=== PATIENT | female | born 1965 | race Caucasian/White ===

== ENCOUNTER 2016-12-28 06:22 | Inpatient (IN) | payer OTHER ==
[2016-12-28] VITALS (12 sets, daily range): BP systolic 101–154; BP diastolic 69–86
[~2016-12-28] VITALS: Ht 152.4 cm; Wt 90.7 kg
[~2016-12-28 06:22] MED LIST: LISI-607 PO; METF500T4 PO
[2016-12-28] MEDS ORDERED: BACITRACIN 50000 UNITS/VIAL ONE (06:43)
[2016-12-28] MEDS ORDERED: BUPIVACAINE MPF 0.5% W/EPI INJ 30 ML VIAL ONE (06:43)
[2016-12-28] MEDS ORDERED: KETOROLAC TROMETHAMINE INJ 30 MG/ML VIAL ONE (06:43)
[2016-12-28] MEDS ORDERED: FENTANYL PF 100MCG/2ML AMPUL ONE ×2 (06:53→09:17)
[2016-12-28] MEDS ORDERED: SUCCINYLCHOLINE CHLORIDE 20 MG/ML VIAL ONE (06:54)
[2016-12-28] MEDS ORDERED: HYDROMORPHONE INJ 2 MG/ML DISP.SYRIN ONE (06:54)
[2016-12-28] MEDS ORDERED: ROCURONIUM BROMIDE 50 MG/5 ML ONE (06:54)
[2016-12-28] MEDS ORDERED: TRANEXAMIC ACID 3,000 MG in SODIUM CHLORIDE IRRIG SOLUTION 70 ML IR ONE (07:30)
[2016-12-28] MEDS ORDERED: BISACODYL SUPP (10 MG) 10 MG/SUPP.RECT SUPP.RECT RC PRN (10:00)
[2016-12-28] MEDS ORDERED: ONDANSETRON HCL/PF 4 MG/2 ML VIAL IVP PRN ×2 (10:00→21:00)
[2016-12-28] MEDS ORDERED: ACETAMINOPHEN 325 MG TABLET PO PRN ×2 (10:00→21:00)
[2016-12-28] MEDS ORDERED: ZOLPIDEM TARTRATE 5 MG TABLET PO PRN ×2 (10:00→21:00)
[2016-12-28] MEDS ORDERED: SENNOSIDES 8.6 MG TABLET PO PRN (10:00)
[2016-12-28] MEDS ORDERED: HYDROCODONE/APAP 5/325MG 1 EACH TABLET PO PRN ×2 (10:00→21:00)
[2016-12-28] MEDS ORDERED: DOCUSATE SODIUM 250 MG CAPSULE PO PRN (10:00)
[2016-12-28] MEDS ORDERED: IV D5/0.45 NACL 1,000 ML IV PRN (10:00)
--- NOTE | 2016-12-28 10:00 | NUR ---
MS RN NOTES RECEIVED PATIENT IN BED REPORTS PAIN 02/16 DR. LOPEZ PAIN AEROSPACE STRESS ENGINEER CALLED. PERIPHERAL IV INTACT PATENT. VS WITHIN NORMAL LIMITS. S/P LEFT KNEE TOTAL REPLACEMENT. WILL CONTINUE TO MONITOR.
--- NOTE | 2016-12-28 11:00 | NUR ---
MS RN NOTES CALL RECEIVED FROM DR. LOPEZ WITH NEW ORDERS NOTED AND CARRIED OUT.
[2016-12-28] MEDS ORDERED: MAGNESIUM HYDROXIDE 30 ML UDC PO PRN ×2 (11:30→21:00)
[2016-12-28] MEDS ORDERED: diphenhydrAMINE HCL 25 MG CAPSULE PO PRN (11:30)
[2016-12-28] MEDS ORDERED: MAG HYDROX/AL HYDROX/SIMETH 30 ML UDC PO PRN ×2 (11:30→21:00)
[2016-12-28] MEDS ORDERED: CLONIDINE HCL 0.1 MG TABLET PO PRN (11:30)
[2016-12-28] MEDS ORDERED: oxyCODONE IR immediate release 5 MG CAPSULE PO PRN (11:30)
[2016-12-28] MEDS: HYDROMORPHONE 1 MG/1 ML DISP.SYRIN IM/IV PRN ×4 (11:39→23:53)
[2016-12-28] MEDS: ANCEF 1 GM/50 ML D5W IV SCH ×4 (13:15→21:09)
[2016-12-28] MEDS: DOCUSATE SODIUM 100 MG CAPSULE PO SCH (16:53)
[2016-12-28] MEDS: ASPIRIN 325 MG TABLET PO SCH (16:53)
[2016-12-28] MEDS: oxyCODONE IR immediate release 5 MG CAPSULE PO PRN ×2 (16:54→21:11)
--- NOTE | 2016-12-28 18:14 | NUR ---
MS RN NOTES PATIENT IN BED RESTING WITH SITTER AT BEDSIDE. ALL DUE MEDICATIONS ADMINISTERED. ALL NEEDS MET. WILL ENDORSE TO PM SHIFT ELIZA. PERIPHERAL IV INTACT PATENT. PATIENTS PAIN CONTROLLED WITH MEDICATIONS.
--- NOTE | 2016-12-28 19:10 | NUR ---
RN OPEN NOTES RECEIVED PATIENT AWAKE IN BED. A/O X4. NO SIGNS OF DISTRESS OR DISCOMFORT. BREATHING EVEN AND UNLABORED. IV ACCESS IN R WRIST WITH D5 1/2 NS INFUSING, NO SIGNS OF REDNESS OR INFILTRATION. STATES PAIN IS 2/10 AND TOLERABLE AT THIS TIME. DRESSING ON LEFT LEG C/D/I. HAS F/C PATENT AND INTACT WITH CLEAR YELLOW FLUID NOTED. BED IN LOW LOCKED POSITION WITH SIDE RAILS X2. CALL LIGHT WITHIN REACH. WILL CONTINUE TO MONITOR.
[2016-12-28] MEDS ORDERED: Z GUARD REMEDY 2 OZ OINT TP PRN (21:00)
[2016-12-28] MEDS ORDERED: DEXTROSE 50%-WATER 50 ML DISP.SYRIN IV PRN (21:00)
[2016-12-28] MEDS ORDERED: MORPHINE SULFATE INJ 2 MG/ML DISP.SYRIN IV PRN (21:00)
[2016-12-28] MEDS: IV NS 0.9% 1,000 ML IV PRN (21:10)
--- NOTE | 2016-12-28 21:11 | NUR ---
RN NOTES ADMINISTERED OXYCODONE IR 10MG PO ORDERED FOR PAIN 8/10 IN L KNEE. VSS. WILL CONTINUE TO MONITOR.
[2016-12-28] MEDS: BLOOD SUGAR DIAGNOSTIC 1 EACH STRIP IN SCH (21:13)
[2016-12-28] MEDS: INSULIN REGULAR, HUMAN 100 UNIT/ML 3 ML VIAL SQ PRN (21:15)
[2016-12-28] MEDS ORDERED: PANTOPRAZOLE 40 MG TABLET.DR PO SCH (22:00)
--- NOTE | 2016-12-28 23:53 | NUR ---
RN NOTES ADMINISTERED DILAUDID 0.5MG IV ORDERED FOR PAIN 9/10 IN L KNEE. VSS. WILL CONTINUE TO MONITOR.
[2016-12-29] MEDS: oxyCODONE IR immediate release 5 MG CAPSULE PO PRN ×4 (04:42→16:54)
--- NOTE | 2016-12-29 04:42 | NUR ---
RN NOTES ADMINISTERED OXYCODONE IR 10MG PO ORDERED FOR PAIN 8/10 IN L KNEE. VSS. WILL CONTINUE TO MONITOR.
[2016-12-29] MEDS: BLOOD SUGAR DIAGNOSTIC 1 EACH STRIP IN SCH ×4 (06:38→21:46)
[2016-12-29] MEDS: INSULIN REGULAR, HUMAN 100 UNIT/ML 3 ML VIAL SQ PRN ×4 (06:39→21:51)
--- NOTE | 2016-12-29 06:56 | NUR ---
RN CLOSING NOTES PATIENT RESTING IN BED. A/O X4. NO SIGNS OF DISTRESS OR DISCOMFORT. BREATHING EVEN AND UNLABORED. IV ACCESS IN R WRIST WITH NS INFUSING, NO SIGNS OF REDNESS OR INFILTRATION. STATES PAIN IS 4/10 AND TOLERABLE AT THIS TIME. DRESSING ON LEFT LEG C/D/I. HAS F/C PATENT AND INTACT WITH CLEAR YELLOW FLUID NOTED. ALL NEEDS MET. NO SIGNIFICANT CHANGES THROUGH THE NIGHT. BED IN LOW LOCKED POSITION WITH SIDE RAILS X2. CALL LIGHT WITHIN REACH. WILL ENDORSE TO AM SHIFT FOR ELIZA.
[2016-12-29 07:13] LABS: BASOPHILS % (AUTO) 0.3 % (0.0-2.0); EOSINOPHILS % (AUTO) 0.3 % (0.0-6.0); HEMATOCRIT 36 % (33-45); HEMOGLOBIN 12.3 g/dL (11.5-14.8); LYMPHOCYTES % (AUTO) 21.7 % (20.0-44.0); MEAN CORPUSCULAR HEMOGLOBIN 30 PG (26.0-33.0); MEAN CORPUSCULAR HGB CONC 34 g/dl (31.0-36.0); MEAN CORPUSCULAR VOLUME 88 fL (82-100); MONOCYTES # (AUTO) 0.9 /CMM (0.1-1.30); MONOCYTES % (AUTO) 6.9 % (2.0-12.0); NEUTROPHILS # (AUTO) 9.8 /CMM (1.8-8.9); NEUTROPHILS % (AUTO) 70.8 % (43.0-81.0); PLATELET COUNT (AUTO) 227 /CMM (150-450); RDW COEFFICIENT OF VARIATION 12.8 (11.5-15.0); RED BLOOD CELL COUNT(AUTO) 4.09 MIL/uL (4.0-5.2); WHITE BLOOD COUNT (AUTO) 13.8 K/uL (4.3-11.0)
--- NOTE | 2016-12-29 07:20 | NUR ---
MS RN OPENING NOTES RECEIVED PT. FROM NIGHTSHIFT NURSE IN STABLE CONDITION. PT IS A/O X3. NO SOB NOTED. BREATHING IS EVEN AND UNLABORED. PT. REPORTS OF AN ACHING, SHARP PAIN IN HER LEFT KNEE. PT. RATES THE PAIN AN 8/10. NIGHTSHIFT NURSE STATES THAT SHE WILL GIVE HER A PRN PAIN MEDICATION. SURGICAL DRESSING ON LEFT LEG REMAINS DRY AND INTACT. ARRIAGA CATHETER INTACT AND DRAINING CLEAR YELLOW URINE. WILL D/C ARRIAGA CATHETER AT 1000 ORDERED BY . IV ON RIGHT WRIST 22G IS PATENT AND INTACT. NO REDNESS OR SIGNS OF INFILTRATION NOTED. BED IN LOW LOCKED POSITION, SIDE RAILS UP X2, CALL LIGHT WITHIN REACH. WILL CONTINUE TO MONITOR.
[2016-12-29] MEDS: HYDROMORPHONE 1 MG/1 ML DISP.SYRIN IM/IV PRN ×5 (07:37→21:43)
[2016-12-29 07:46] LABS: ALBUMIN 3.2 g/dL (3.4-5.0); BILIRUBIN,TOTAL 0.5 mg/dL (0.2-1.0); CALCIUM, SERUM 8.6 mg/dL (8.5-10.1); CREATININE 0.6 mg/dL (0.6-1.3); MAGNESIUM 1.7 mg/dL (1.8-2.4); PHOSPHORUS 4.6 mg/dL (2.5-4.9); POTASSIUM 4.2 mmol/L (3.5-5.1); TOTAL PROTEIN, SERUM 6.8 g/dL (6.4-8.2)
[2016-12-29 08:00] VITALS: BP 110/63
[2016-12-29] MEDS: LISINOPRIL (5MG) 5 MG TABLET PO SCH (09:15)
[2016-12-29] MEDS: METFORMIN 500 MG TABLET PO SCH ×2 (09:15→16:55)
[2016-12-29] MEDS: ASPIRIN 325 MG TABLET PO SCH ×2 (09:18→16:55)
[2016-12-29] MEDS: DOCUSATE SODIUM 100 MG CAPSULE PO SCH ×2 (09:18→16:55)
[2016-12-29] MEDS: PANTOPRAZOLE 40 MG TABLET.DR PO SCH (09:18)
--- NOTE | 2016-12-29 10:01 | NUR ---
MS RN NOTES FC REMOVED FROM PT ORDERED BY MD AND PER HOSPITAL PROTOCOL.
[2016-12-29] MEDS: Magnesium 1GM/D5W 100ML PREMIX 100 ML IV SCH ×2 (12:49→14:06)
[2016-12-29 16:00] VITALS: BP 112/73
[2016-12-29] MEDS: IV NS 0.9% 1,000 ML IV PRN (16:56)
--- NOTE | 2016-12-29 18:48 | NUR ---
MS RN CLOSING NOTES PT. REMAINS IN STABLE CONDITION . PAIN WAS PROPERLY MANAGED WITH A COMBINATION OF OXYCODONE AND DILAUDID. WILL ADMINISTERED PRN DILAUDID BEFORE LEAVING. VITAL SIGNS HAVE REMAINED WNL. PT. WAS SEEN BY PT TWO TIMES TODAY AND WAS ABLE TO WALK ABOUT 80FT BOTH TIME. CMP MACHINE WAS ON THE PT. FOR 3HRS. PT. COULD NOT TOLERATE IT ANY LONGER AFTER THAT. ALL NEEDS WERE MET AND ANTICIPATED FOR DURING SHIFT. ALL ORDERS WERE CARRIED OUT ACCORDINGLY. WILL ENDORSE TO NIGHTSHIFT NURSE FOR ELIZA
--- NOTE | 2016-12-29 19:30 | NUR ---
MS RN NOTES RECEIVED ON BED A/O X4,S/P LEFT KNEE SURGERY UNDER DR TESFAYE.DRESSING INTACT AND DRY.DVT PUMP IN USED FOR DVT PROHYLAXIS.IVF INFUSING WELL VIA IV PUMP ON THE RIGHT WRIST..SITE PATENT.NO S/S OF INFILTRATION NOTED.LOTS OF FAMILY MEMBER AT BEDSIDE.PAIN BEARABLE AT THE MOMENT.CALL LIGHT IN REACH,NEEDS ANTICIPATED.
[2016-12-29 20:00] VITALS: BP 138/66
[2016-12-29 20:11] VITALS: BP 138/66
--- NOTE | 2016-12-29 20:56 | NUR ---
MS RN NOTES PAIN MANAGEMENT C/O PAIN VIA LEFT KNEE 6-11/16 ON PAIN SCALE.MEDICATED WITH NORCO 5/325MG 1 TAB PO PER PATIENT REQUEST.WILL MONITOR FOR RELIEF.
[2016-12-29 21:08] LABS: APPEARANCE,URINE SL CLOUDY (CLEAR); BILIRUBIN,URINE NEGATIVE (NEGATIVE); BLOOD, URINE 2+ Ery/uL (NEGATIVE); COLOR,URINE YELLOW (YELLOW); KETONES,URINE NEGATIVE (NEGATIVE); LEUKOCYTE ESTERASE ,URINE NEGATIVE (NEGATIVE); NITRITE, URINE NEGATIVE (NEGATIVE); PROTEIN,URINE NEGATIVE (NEGATIVE); UGLUCOSE NEGATIVE (NEGATIVE); UROBILINOGEN,URINE 0.2 EU/dL (0.2)
[2016-12-29 21:16] LABS: BACTERIA,URINE Few /HPF (None Seen); SQUAMOUS EPITHELIAL CELL,UR Few /HPF (None Seen); WBC,URINE 0-2 /HPF (0-3)
--- NOTE | 2016-12-29 21:30 | NUR ---
MS RN NOTES SEEN BY DR LOPEZ(PAIN MANAGEMENT MD)NO NEW ORDERS.
--- NOTE | 2016-12-29 21:43 | NUR ---
MS RN NOTES PAIN MANAGEMENT PAIN ON LEFT KNEE 10/10,CRYING,MEDICATED WITH DILAUDID 0.5MG IVP ORDERED AND PER PATIENT REQUEST.
--- NOTE | 2016-12-29 22:00 | NUR ---
MS RN NOTES ACCU-CHECK BLOOD SUGAR CHECK 202,COVERED WITH HUMULIN R 4 UNITS PER MILD SLIDING SCALE.
--- NOTE | 2016-12-30 | NUR ---
MS RN NOTES SOUND ASLEEP,O2 SAT 99% ON ROOM AIR
[2016-12-30] MEDS: HYDROMORPHONE 1 MG/1 ML DISP.SYRIN IM/IV PRN ×6 (01:12→17:04)
--- NOTE | 2016-12-30 01:12 | NUR ---
MS RN NOTES PAIN MANAGEMENT AWAKE,FACIAL GRIMACE NOTED,C/O PAIN VIA LEFT KNEE 9/10 ON PAIN SCALE.MEDICATED WITH DILAUDID 0.5MG IV ORDERED.WILL MONITOR FOR RELIEF.
--- NOTE | 2016-12-30 04:55 | NUR ---
MS RN NOTES PAIN MANAGEMENT C/O PAIN VIA LEFT KNEE,MOANS WITH FACIAL GRIMACE.MEDICATED WITH DILAUDID 0.5MG IV PER PATIENT REQUEST
[2016-12-30] MEDS: BLOOD SUGAR DIAGNOSTIC 1 EACH STRIP IN SCH ×3 (06:38→17:51)
[2016-12-30] MEDS: INSULIN REGULAR, HUMAN 100 UNIT/ML 3 ML VIAL SQ PRN ×2 (06:40→12:03)
[2016-12-30 07:15] LABS: CALCIUM, SERUM 8.1 mg/dL (8.5-10.1); CREATININE 0.6 mg/dL (0.6-1.3); MAGNESIUM 1.7 mg/dL (1.8-2.4); POTASSIUM 3.9 mmol/L (3.5-5.1)
--- NOTE | 2016-12-30 07:38 | NUR ---
MS RN NOTES PAIN MANAGEMENT C/O PAIN VIA LEFT KNEE,CRYING.PAIN SCALE 10/10.MEDICATED WITH DILAUDID 0.5MG IV ORDERED.WILL MONITOR FOR RELIEF.ENDORSED TO MAUREEN SYED FOR ELIZA.
[2016-12-30 08:00] VITALS: BP 124/73
--- NOTE | 2016-12-30 08:13 | NUR ---
MS/RN OPENING NOTE PATIENT RECEIVED IN BED. NO ACUTE DISTRESS. COMPLAIN OF PAIN RATED 8 OUT OF 10. PAIN MED ADMINISTERED AROUND 7AM. TOLERATED WELL. ALERT AND ORIENTED TIMES 4. ALL NEEDS ATTENDED TO. CALL LIGHT IN REACH. WILL CONTINUE TO MONITOR TO ENSURE SAFETY
[2016-12-30] MEDS: LISINOPRIL (5MG) 5 MG TABLET PO SCH (09:56)
[2016-12-30] MEDS: METFORMIN 500 MG TABLET PO SCH ×2 (09:56→17:03)
[2016-12-30] MEDS: DOCUSATE SODIUM 100 MG CAPSULE PO SCH ×2 (09:56→17:04)
[2016-12-30] MEDS: ASPIRIN 325 MG TABLET PO SCH ×2 (09:56→17:03)
--- NOTE | 2016-12-30 10:00 | NUR ---
MS/RN Labs reviewed Morning labs reviewed: -Magnesium level 1.7 - to be replaced with 2gm IVPB.
[2016-12-30] MEDS: PANTOPRAZOLE 40 MG TABLET.DR PO SCH (10:05)
[2016-12-30] MEDS: Magnesium 1GM/D5W 100ML PREMIX 100 ML IV SCH ×2 (10:12→11:43)
--- NOTE | 2016-12-30 11:30 | NUR ---
MS/RN Physical therapy Seen by PT - able to ambulate 90ft using walker. CMP in use -5 - 35 degrees.
--- NOTE | 2016-12-30 12:06 | NUR ---
MS/RN Blood sugar Blood sugar at noon 275, 6 units regular insulin administered as per sliding scale.
[2016-12-30] MEDS ORDERED: ASPI325T2 PO (14:04)
[2016-12-30] MEDS ORDERED: ENOX40DI SQ (14:04)
[2016-12-30] MEDS ORDERED: ACET325T53 PO (14:14)
[2016-12-30] MEDS ORDERED: BISA10SU8 RC (14:14)
[2016-12-30] MEDS ORDERED: HYDR1DIS2 IM/IV (14:14)
[2016-12-30] MEDS ORDERED: HYDR-3326 PO (14:14)
[2016-12-30] MEDS ORDERED: OXYC5CAP3 PO (14:14)
[2016-12-30] MEDS ORDERED: SENN8.6T6 PO (14:14)
[2016-12-30] MEDS ORDERED: INSU100V28 SQ (14:14)
[2016-12-30 16:00] VITALS: BP 123/73
--- NOTE | 2016-12-30 16:17 | NUR ---
MS/RN LEFT KNEE SURGICAL INCISION DRESSING CHANGE SPOKE WITH VIDAL OROZCO AND PER VIDAL OROZCO TO GO AHEAD AND DO DRESSING CHANGE FOR LEFT KNEE SURGICAL INCISION. SITE CLEANSE WITH NORMAL SALINE, PAT DRY AND COVER WITH DRY DRESSING. TOLERATED WELL AND OKAY TO DISCHARGE PATIENT AT [facility] WITH SAME DRESSING CHANGE INSTRUCTIONS.
--- NOTE | 2016-12-30 16:44 | NUR ---
MS/RN REPORT GIVEN TO BASIL AT ACUTE REHAB REPORT GIVEN TO BASIL SYED FROM [facility]. MADE AWARE REGARDING DRESSING CHANGE INSTRUCTIONS FOR LEFT KNEE INCISION SITE. PER BASIL RN TO LEAVE THE IV ACCESS SECONDARY TO IF THE PHYSICIAN AT [facility] PRESCRIBED ANY IV ORDERS.
--- NOTE | 2016-12-30 18:10 | NUR ---
MS/SCRAP DROP OPERATOR TO ACUTE REHAB PATIENT LEFT IN STABLE CONDITION VIA GURNEY ACCOMPAINED BY 2 CONVERTING TECHNICIAN. LEFT WITH RIGHT WRIST IV SITE, INTACT AND FLUSHING WELL. NO SIGNS OF ACUTE DISTRESS. DILAUDID 0.5ML GIVEN AT 1710. TOLERATED WELL. ID BAND REMOVED. ALL NEEDS ATTENDED TO.
== END 2016-12-30 18:20 | disposition other institution (70) | DRG 469 ==
LOC: DS 06:22 → MED 10:48
PROVIDERS: ADMIT Specialist; ATTEND Internal Medicine
PROC: 0SRD0J9 Replacement of Left Knee Joint with Synthetic Substitute, Cemented, Open Approach (ICD-10-PCS; principal; 2016-12-28 07:30)
DX: M12.50 Traumatic arthropathy, unspecified site (principal); R53.2 Functional quadriplegia; D68.59 Other primary thrombophilia; E66.01 Morbid (severe) obesity due to excess calories; I10 Essential (primary) hypertension; Z68.39 Body mass index [BMI] 39.0-39.9, adult; E11.9 Type 2 diabetes mellitus without complications; Z96.651 Presence of right artificial knee joint
CPT/HCPCS: 36415; 71010-TC; 80048-TC; 80053-TC; 80061-TC; 81000-TC; 82962-TC; 83735-TC; 84100-TC; 85025-TC; 86850-TC; 87081-TC; 87086-TC; 88305-TC; 88311-TC; 97110-TC; 97116-TC; 97530-TC; 97760-TC; A4217; A4606; A6253; A6402; C1713; J0330; J0690; J1100; J1170; J1815; J1885; J2405; J2704; J2710; J3010; J3475; J3490; J7030; J7060